=== PATIENT | male | born 1965 | race Caucasian/White ===

== ENCOUNTER → 2018-07-09 08:44 | Outpatient (CLI) | payer OTHER, SELFPAY ==
[2018-07-09 09:38] LABS: Add Manual Diff / Slide Review NO; Basophils Absolute Auto 0 /uL (0-100); Basophils Percent Auto 0.4 % (0-2); Eosinophils Absolute Auto 100 /uL (0-450); Eosinophils Percent Auto 1.1 % (2-4); Hematocrit 45.6 % (41-53); Hemoglobin 15.7 g/dL (13.5-17.5); Lymphocytes Absolute Auto 1500 /uL (1100-4500); Lymphocytes Percent Auto 15.3 % (25-40); Mean Corpuscular HGB Conc 34.5 % (30-36); Mean Corpuscular Volume 92.8 fL (80-100); Monocytes Absolute Auto 700 /uL (0-900); Neutrophils Absolute Auto 7400 /uL (1500-7000); Neutrophils Percent Auto 76.2 % (50-75); Platelet Count 220 X10^3/uL (150-400); Red Blood Cell Count 4.92 X10^6/uL (4.5-5.9); Red Cell Distribution Width 14.3 % (11.6-14.8); White Blood Cell Count 9.7 X10^3/uL (4.5-11.0)
[2018-07-09 09:54] LABS: Alanine Aminotransferase 19 IU/L (21-72); Albumin 4.2 g/dL (3.5-5.0); Albumin Globulin Ratio 1.4 (1.0-2.8); Alkaline Phosphatase 88 U/L (38-126); Aspartate Aminotransferase 22 IU/L (17-59); BUN Creatinine Ratio 8.8 (6-22); Bilirubin Total 0.7 mg/dL (0.2-1.3); Blood Urea Nitrogen 7 mg/dL (9-20); Calcium 9.4 mg/dL (8.4-10.2); Carbon Dioxide 29 mmol/L (22-32); Chloride 101 mmol/L (98-107); Cholesterol 192 mg/dL (140-199); Estimated Glomerular Filt Rate > 60.0 mL/min (>60); Glucose 115 mg/dL (70-100); HDL Cholesterol 46 mg/dL (40-60); HEMOLYSIS < 15 (0-50); LDL Cholesterol Calculated 119 mg/dL (<100); Potassium 4.7 mmol/L (3.4-5.1); Sodium 138 mmol/L (137-145); Total Protein 7.2 g/dL (6.3-8.2); Triglycerides 134 mg/dL (35-150)
[2018-07-09 10:23] LABS: Prostate Specific Antigen 0.171 ng/mL (0.10-4.00); TSH w/ Reflex to FT4 1.67 uIU/mL (0.47-4.68)
== END ==
PROVIDERS: PCP Nurse Practitioner; Visit Provider Nurse Practitioner
DX: Z00.00 Encounter for general adult medical examination without abnormal findings (principal); I10 Essential (primary) hypertension
CPT/HCPCS: 36415; 80053; 80061; 84153; 84443; 85025

== ENCOUNTER 2019-02-03 13:32 | Day surgery (SDC) | payer OTHER, SELFPAY ==
--- NOTE | 2019-02-03 | PATH_ITS ---
[facility] Accession Number: [id number] . 01 Material submitted: . PART A: colon - COLON POLYP AT 90CM PART B: colon - COLON POLYP AT 35CM PART C: rectum - RECTAL POLYP X2 AT 15CM . 02 Diagnosis: A. Colon At 90 CM, Polyp: Tubular adenoma. . B. Colon At 35 CM, Polyp: Tubular adenoma. . C. Rectum At 15 CM, Polyps: Fragments of tubular adenoma and fragment of hyperplastic polyp (2 polyps removed). [facility] 02/05/2019 1026 Local . 02 Electronically signed: . Vince Erickson MD, PhD, Pathologist NPI- [id number] . 01 Gross description: . Part A: COLON POLYP AT 90CM: Received in formalin is 1 fragment(s) of terry, soft tissue measuring 0.3 x 0.3 x 0.4 cm which is inked, bisected and submitted entirely in 1 cassette(s) 1. Part B: COLON POLYP AT 35CM: Received in formalin is 1 fragment(s) of terry, soft tissue measuring 0.6 x 0.4 x 0.4 cm which is inked, bisected and submitted entirely in 1 cassette(s) Part C: RECTAL POLYP X2 AT 15CM: Received in formalin are 3 fragment(s) of terry, soft tissue measuring 0.3 x 0.2 x 0.2 cm to 0.3 x 0.2 x 0.2 cm submitted entirely in 1 cassette(s) /QBJ 02/04/2019 2020 Local . 02 Pathologist provided ICD-10: D12.6, D12.8, K62.1 . 02 CPT . 734308, 696092, 655229 Performed at: 01 [place] [address] [id number] MD Bryant Pfeiffer MD Phone: [phone] Performed at: 02 [facility] [address] [place] [id number] MD Sharyn Chung MD Phone: [phone]
[2019-02-03] MEDS: SODIUM CHLORIDE 0.9% 1,000 ML 200 ML IV (13:44)
[2019-02-03 13:56] VITALS: BP 172/101; PULSE 76; RESP 16; TEMP 36.4; O2SAT 97; BMI 24.1
--- NOTE | 2019-02-03 14:31 | PM.HP.1 ---
History of Present Illness History of Present Illness Date Patient Seen: 02/03/19 Time Patient Seen: 14:31 Chief complaint: [address] SCREENING COLONOSCOPY Narrative: This is a 53-year-old man with a history of uncontrolled hypertension, smoking, prediabetes who has never had a screening colonoscopy. He denies any personal history of bleeding, or melena of the stool. ROS: Thirteen system review is negative other than as mentioned below and in HPI. PE: GENERAL: Well groomed and cooperative. Appears stated age. Answers questions promptly and appropriately. Vital signs noted. HENT: Normocephalic, atraumatic. Hearing intact. Oral mucosa is pink and moist. EYES: Conjunctiva pink, sclera white, no periorbital swelling. CARDIOVASCULAR: Regular rate. No pedal edema. RESPIRATORY: Non to get neck, breathing comfortably on room air. GASTROINTESTINAL: Abdomen soft and non-distended GENITALURINARY: No flank tenderness. MUSCULOSKELETAL: Equal tone and mass bilaterally. SKIN: Warm, dry, soft, appropriate color for ethnicity. No other lesions, rashes, or wounds. NEURO: Alert and Oriented X 3. No gross sensory deficits, or cognitive issues. PSYCH: Appropriate affect and mood. Patient History Medical History Chicken pox (Resolved ~1974) Hypertension (Acute) Pre-diabetes (Acute) Psoriasis (Chronic) Wears dentures (Acute) Surgical History History of tonsillectomy (Resolved) Family & Social History Family History Mother Diabetes mellitus Dementia Social History: household members spouse Tobacco & Substance use: Smoking Status Current every day smoker Meds Home Medications and Allergies Home Medications Medication Instructions Recorded Confirmed Type clobetasol 0.05 % topical cream 1 applictn TOP BID PRN #30 gram 07/09/18 02/03/19 Rx varicella-zoster [id number] (PF) 50 0.5 ml IM ONCE #1 each 07/09/18 07/09/18 Rx mcg/0.5 mL IM susp, kit Allergies Allergy/AdvReac Type Severity Reaction Status Date / Time No Known Drug Allergies Allergy Verified 02/03/19 13:45 Exam Vital Signs (past 8 hours): - 02/03/19 13:56 Temperature 97.6 F Pulse Rate 76 Respiratory Rate 16 Blood Pressure 172/101 H Pulse Oximetry 97 Oxygen Delivery Method Room Air Assessment & Plan Assessment and plan (1) At average risk for colon cancer: Current visit: Yes Status: Acute Assessment & Plan narrative: This is a 53-year-old man with history of uncontrolled hypertension. His blood pressure is high prior to the procedure. I've explained to the patient that we will attempt the procedure, but if the blood pressure is concerning or if we need to stop the procedure we will not be able to complete his procedure today. Patient is in agreement with this plan. Otherwise risks and benefits of the procedure were discussed including risk of bleeding, perforation, need for additional procedures. The patient desires to proceed. Time Spent With Patient Time with patient: 15-24 minutes Quality VTE Deep Vein Thrombosis/Pulmonary Embolism Present on Admission: No
[2019-02-03] MEDS: MIDAZOLAM 5 MG/5 ML VIAL IV (15:00)
[2019-02-03] MEDS: fentaNYL 250 MCG/5 ML INJ IV (15:00)
--- NOTE | 2019-02-03 15:25 | PM.OP.ENDO ---
Operative Date/Time/Diagnoses Date of procedure: 02/03/19 Time of procedure: 15:25 Pre-op diagnosis: Family history of colon cancer Post-op diagnosis: other (Polyps) Procedure & Clinicians Study performed: Colonoscopy, polypectomy x4 with hot snare Same procedure as scheduled: Yes Indications: This is a [age] year old man with a family history of colon cancer in his father Surgeon: Melissa Hopper Procedure Notes SCOAP/Timeout: Performed Procedure in detail: The patient was brought to the room and placed in left lateral decubitus position with all bony prominences padded. A time-out was performed and then the patient was given procedural sedation starting with 4 mg of Versed and 100 mcg of fentanyl. Vitals were monitored throughout the procedure and remained stable. Once adequately sedated the procedure was begun. A rectal exam was performed revealing no abnormalities. The colonoscope was then introduced to the rectum and advanced to the cecum in the usual fashion. The sigmoid colon was very tortuous and required prolonged maneuvering to get the scope into the descending colon. The cecum was identified by the appendiceal orifice, the mucosal try fold, and the ileocecal valve. The scope was then retracted while rotating side to side and examining each mucosal fold. For large polyps were found, greater than 1 cm each. They were removed with hot snare. One was at 90 cm, was at 35 cm from was at 15 cm and another was at 15 cm. At the conclusion procedure retroflexion was performed and small grade 1-2 internal hemorrhoids without stigmata of bleeding were seen. The scope was then withdrawn from the rectum the procedure was concluded. The patient tolerated the procedure well was transferred to the PACU in stable condition. Scope withdrawal time: 27 Sedation minutes: 49 Findings: polyp Specimen(s): other (4 polyps greater than 1 cm each) Complications: none Impression: four advanced polyps found Post-procedure Recommendations: Colonscopy in 1 year (Depending on pathology results) Follow up: as needed Disposition: PACU
[2019-02-03 15:33] VITALS: BP 146/95; PULSE 76; RESP 20; TEMP 37.1; O2SAT 98
[2019-02-03 15:38] VITALS: BP 148/97; PULSE 81; RESP 14; O2SAT 99
[2019-02-03 15:43] VITALS: BP 142/92; PULSE 75; RESP 12; O2SAT 98
[2019-02-03 15:48] VITALS: BP 142/97; PULSE 77; RESP 13; TEMP 36.2; O2SAT 98
[2019-02-03 16:04] VITALS: BP 133/78; PULSE 80; RESP 16; TEMP 36.5; O2SAT 98
== END 2019-02-03 16:08 | disposition home or self-care (01) ==
PROVIDERS: PCP Nurse Practitioner; Visit Provider Surgery
PROC: 0DJD8ZZ Inspection of Lower Intestinal Tract, Via Natural or Artificial Opening Endoscopic (ICD-10-PCS; CPT 45378; principal; 2019-02-03 14:30)
DX: Z12.11 Encounter for screening for malignant neoplasm of colon (principal); I10 Essential (primary) hypertension; F17.210 Nicotine dependence, cigarettes, uncomplicated; K64.0 First degree hemorrhoids; D12.6 Benign neoplasm of colon, unspecified; D12.8 Benign neoplasm of rectum
CPT/HCPCS: 45385; 99152; 99153; J2250; J3010

== ENCOUNTER → 2020-03-29 07:40 | Outpatient (CLI) | payer OTHER, SELFPAY ==
[2020-03-29 09:01] LABS: Add Manual Diff / Slide Review NO; Basophils Absolute Auto 0 /uL (0-100); Basophils Percent Auto 0.5 % (0-2); Eosinophils Absolute Auto 100 /uL (0-450); Eosinophils Percent Auto 1.2 % (2-4); Hematocrit 42.4 % (41-53); Hemoglobin 14.6 g/dL (13.5-17.5); Lymphocytes Absolute Auto 1400 /uL (1100-4500); Lymphocytes Percent Auto 19.2 % (25-40); Mean Corpuscular HGB Conc 34.5 % (30-36); Mean Corpuscular Hemoglobin 32.1 PG (26-34); Mean Corpuscular Volume 93.2 fL (80-100); Monocytes Absolute Auto 400 /uL (0-900); Monocytes Percent Auto 5.9 % (3-14); Neutrophils Absolute Auto 5400 /uL (1500-7000); Neutrophils Percent Auto 73.2 % (50-75); Platelet Count 226 X10^3/uL (150-400); Red Blood Cell Count 4.55 X10^6/uL (4.5-5.9); Red Cell Distribution Width 13.2 % (11.6-14.8); White Blood Cell Count 7.4 X10^3/uL (4.5-11.0)
[2020-03-29 09:25] LABS: BUN Creatinine Ratio 8.6 (6-22); Blood Urea Nitrogen 8 mg/dL (9-20); Calcium 8.9 mg/dL (8.4-10.2); Carbon Dioxide 27 mmol/L (22-32); Chloride 103 mmol/L (98-107); Cholesterol 187 mg/dL (140-199); Estimated Glomerular Filt Rate > 60.0 mL/min (>60); Glucose 106 mg/dL (70-100); HDL Cholesterol 48 mg/dL (40-60); HEMOLYSIS < 15 (0-50); LDL Cholesterol Calculated 82 mg/dL (<100); Potassium 3.7 mmol/L (3.4-5.1); Sodium 136 mmol/L (137-145); Triglycerides 283 mg/dL (35-150)
[2020-03-29 09:36] LABS: LDL Cholesterol Direct 114 mg/dL (<100)
[2020-03-29 11:04] LABS: Hepatitis B Surface Antigen NEGATIVE s/c (NEGATIVE)
[2020-03-30 00:07] LABS: Hepatitis B Core Antibody Negative (Negative)
[2020-03-30 01:27] LABS: Hepatitis B Surf AB Quant <3.1 mIU/mL (Immunity>9.9)
[2020-03-31 15:08] LABS: QuantiFERON Mitogen Value 7.86 IU/mL (.); QuantiFERON Nil Value 0.11 IU/mL (.); QuantiFERON TB Gold Plus Negative (Negative); QuantiFERON TB1 Ag Value 0.19 IU/mL (.)
--- NOTE | 2022-04-17 | PATH_ITS ---
Note [facility] Accession Number: [id number] TESTS RESULT FLAG UNITS REF RANGE LAB Clinician Provided Cytology Information No. of containers..02 Previously Prepared Cytology Slide 35 Unknown Storage/container code(s) Source: LEFT THYROID NODULE DIAGNOSIS: LEFT THYROID NODULE INCONCLUSIVE. BETHESDA CATEGORY III. ATYPIA OF UNDETERMINED SIGNIFICANCE. MOLECULAR STUDIES PENDING; RESULTS WILL BE REPORTED SEPARATELY. Pathologist ICD10: R89.6, E07.9 Signed out by: Jumana Trent MD, Pathologist NPI- [id number] Performed by: Fredy Mccain, [facility] Technician ([facility]) Gross description: 30 CC, RED, HAZY RECIEVED IN CYTOLYT WHITE CAP CONTAINER RECEIVED 6 ALOCHOL FIXED SLIDES IN 2 GREEN CAP COFFINS RECIEVED 6 FIXED SLIDES IN 2 SLIDE HOLDERS RECEIVED 1 RNA VIAL /RZA 04/18/2022 110 Local FLAG LEGEND: L-Low Normal,H-High Normal,LL-Alert Low,HH-Alert High <-Panic Low,>-Panic High,A-Abnormal,AA-Critical Abnormal Performed at: 01 =Z [facility] [address], [place] [address] Bryant Pfeiffer MD, Performed at: 01 [facility] [address], [place], [place] [id number] MD Bryant Pfeiffer MD Phone: [phone]
== END ==
LOC: LAB 07:43
PROVIDERS: PCP Nurse Practitioner; Referring Provider Physician Assistant; Visit Provider Physician Assistant
DX: L40.0 Psoriasis vulgaris (principal)
CPT/HCPCS: 36415; 80048; 80061; 83721; 85025; 86480; 86704; 86706; 87340

== ENCOUNTER → 2020-05-06 16:51 | Outpatient (CLI) | payer OTHER, SELFPAY ==
[2020-05-06] MEDS: COVID-19 VACC, Ad26(JANSSEN)/PF 0.5 ML IM (17:08)
== END ==
PROVIDERS: PCP Nurse Practitioner; Visit Provider Internal Medicine
DX: Z23 Encounter for immunization (principal)
CPT/HCPCS: 0031A; 91303

== ENCOUNTER → 2020-05-17 07:57 | Outpatient (CLI) | payer OTHER, SELFPAY ==
[2020-05-17 10:13] LABS: Prostate Specific Antigen Scrn 0.317 ng/mL (0.1-4.0)
== END ==
PROVIDERS: PCP Nurse Practitioner; Referring Provider Nurse Practitioner; Visit Provider Nurse Practitioner
DX: Z12.5 Encounter for screening for malignant neoplasm of prostate (principal)
CPT/HCPCS: 36415; G0103

== ENCOUNTER → 2023-01-09 15:27 | Outpatient (CLI) | payer OTHER, SELFPAY ==
[2023-01-09 16:50] LABS: Add Manual Diff / Slide Review NO; Basophils Absolute Auto 100 /uL (0-100); Basophils Percent Auto 0.7 % (0-2); Eosinophils Absolute Auto 200 /uL (0-450); Eosinophils Percent Auto 2.1 % (2-4); Hematocrit 43.6 % (41-53); Hemoglobin 14.6 g/dL (13.5-17.5); Lymphocytes Absolute Auto 2900 /uL (1100-4500); Lymphocytes Percent Auto 30.5 % (25-40); Mean Corpuscular HGB Conc 33.5 % (30-36); Mean Corpuscular Hemoglobin 29.5 PG (26-34); Mean Corpuscular Volume 87.9 fL (80-100); Monocytes Absolute Auto 600 /uL (0-900); Monocytes Percent Auto 6.8 % (3-14); Neutrophils Absolute Auto 5700 /uL (1500-7000); Neutrophils Percent Auto 59.9 % (50-75); Platelet Count 252 X10^3/uL (150-400); Red Blood Cell Count 4.96 X10^6/uL (4.5-5.9); Red Cell Distribution Width 13.9 % (11.6-14.8); White Blood Cell Count 9.5 X10^3/uL (4.5-11.0)
[2023-01-09 17:03] LABS: Alanine Aminotransferase 19 IU/L (<50); Albumin 4.3 g/dL (3.5-5.0); Albumin Globulin Ratio 1.3 (1.0-2.8); Alkaline Phosphatase 71 U/L (38-126); Aspartate Aminotransferase 22 IU/L (17-59); BUN Creatinine Ratio 10.6 (6-22); Bilirubin Total 0.4 mg/dL (0.2-1.3); Blood Urea Nitrogen 9 mg/dL (9-20); Calcium 9.3 mg/dL (8.4-10.2); Carbon Dioxide 26 mmol/L (22-32); Chloride 103 mmol/L (98-107); Cholesterol 199 mg/dL (140-199); Estimated Glomerular Filt Rate > 60 mL/min (>60); Globulin 3.2 g/dL (1.7-4.1); Glucose 82 mg/dL (70-100); HDL Cholesterol 42 mg/dL (40-60); HEMOLYSIS 15 (0-50); LDL Cholesterol Calculated 114 mg/dL (<100); Potassium 4.1 mmol/L (3.4-5.1); Sodium 137 mmol/L (137-145); Total Protein 7.5 g/dL (6.3-8.2); Triglycerides 213 mg/dL (35-150)
[2023-01-09 17:17] LABS: Free T3, Triiodothyronine Free 4.75 pg/mL (2.77-5.27); Free T4, Direct Thyroxine 1.16 ng/dL (0.78-2.19)
[2023-01-09 17:31] LABS: Thyroid Stimulating Hormone 1.33 uIU/mL (0.47-4.68)
[2023-01-10 18:39] LABS: HIV 1 & 2 Ab/Ag 4th Gen Combo NEGATIVE (NEGATIVE); Hep C Virus Ab w/Reflex Quant NEGATIVE s/c (NEGATIVE)
== END ==
PROVIDERS: PCP Nurse Practitioner; Referring Provider Nurse Practitioner; Visit Provider Nurse Practitioner
DX: Z00.00 Encounter for general adult medical examination without abnormal findings (principal); Z11.59 Encounter for screening for other viral diseases; Z11.4 Encounter for screening for human immunodeficiency virus [HIV]
CPT/HCPCS: 36415; 80053; 80061; 84439; 84443; 84481; 85025; 86803; 87389

== ENCOUNTER 2023-04-18 07:09 | Day surgery (SDC) | payer OTHER, SELFPAY ==
--- NOTE | 2023-04-18 | PATH_ITS ---
[facility] Accession Number: [id number] No. of containers..02 Tissue . 01 Material submitted: . PART A: colon - ASCENDING POLYP PART B: colon - TRANSVERSE POLYP . 01 Diagnosis: A. ASCENDING COLON POLYP, BIOPSY: Tubular adenoma. . B. TRANSVERSE COLON POLYP, BIOPSY: Tubular adenoma. [facility] 04/22/2023 1102 Local . 01 Electronically signed: . Karuna Guzman MD, Pathologist NPI- [id number] . 01 Gross description: . Part A: ASCENDING POLYP: Received in formalin is multiple fragment(s) of terry, soft tissue measuring 1.2 x 0.5 x 0.3 cm in aggregate submitted entirely in 1 cassette(s) Part B: TRANSVERSE POLYP: Received in formalin is 1 fragment(s) of terry, soft tissue measuring 0.9 x 0.5 x 0.3 cm submitted entirely in 1 cassette(s) /AAY 04/19/2023 0440 Local . 01 Pathologist provided ICD-10: D12.2, D12.3 . 01 CPT . 117525, 503921 Specimen Comment: A courtesy copy of this report has been sent to [phone] Performed at: 01 [facility] [address] [place] [address] [address] [facility], [place], [place] [id number] MD Bryant Pfeiffer MD Phone: [phone]
[2023-04-18 07:31] VITALS: BP 155/88; PULSE 60; RESP 16; TEMP 36.2; O2SAT 99
--- NOTE | 2023-04-18 08:02 | P.HP_ITS ---
History of Present Illness History of Present Illness Date Patient Seen: 04/18/23 Time Patient Seen: 08:02 Chief complaint: Screening Colonoscopy Narrative: Jason is a 58-year-old man who presents for a colonoscopy. He had a colonoscopy with Dr. Kolb in 2019 and for polyps were removed. They were described as being larger than 1 cm. At least 3 of them came back as tubular adenomas. One was a hyperplastic polyp. No family history of colon cancer. No rectal bleeding or melena. [facility] Medical History (Updated 04/18/23 @ 08:03 by Dexter Merchant MD) Erectile dysfunction At average risk for colon cancer Wears dentures Pre-diabetes Hypertension Psoriasis Chicken pox (~1974) Surgical History History of tonsillectomy Family History Mother Diabetes mellitus Dementia Social History household members: spouse Smoking Status: Former smoker alcohol intake: former Meds Home Medications and Allergies Home Medications Medication Instructions Recorded Confirmed Type calcipotriene 0.005 1 applic topical DAILY #120 grams 01/08/23 04/18/23 Rx %-betamethasone 0.064 % topical foam (Enstilar) Allergies Allergy/AdvReac Type Severity Reaction Status Date / Time No Known Drug Allergies Allergy Verified 01/08/23 09:16 Exam Vital Signs (past 8 hours): - 04/18/23 07:31 Temperature 97.1 F L Pulse Rate 60 Respiratory Rate 16 Blood Pressure 155/88 H Pulse Oximetry 99 Oxygen Delivery Method Room Air Oxygen Delivery Method Room Air Const General: healthy appearing Assessment & Plan Assessment and plan (1) Personal history of colonic polyps: Status: Acute Plan We reviewed the risks and benefits of colonoscopy for a personal history of colon polyps and he would like to proceed.
--- NOTE | 2023-04-18 08:30 | PM.OP.COLON ---
Operative Date/Time/Diagnoses Date of procedure: 04/18/23 Time of procedure: 08:30 Pre-op diagnosis: Personal history of colon polyps Post-op diagnosis: same Procedure & Clinicians Study performed: Colonoscopy Same procedure as scheduled: Yes Surgeon: Dexter Merchant Procedure Notes Procedure in detail: Surgeon: Dexter Merchant MD Anesthesia: Gage Cortez MD Procedure: The patient was brought to the endoscopy suite, placed in left lateral decubitus position. The patient was connected to monitoring devices. A time-out was performed. Sedation was administered. Once the patient was adequately sedated, a digital rectal exam was performed and was normal. The scope was then inserted and advanced to the cecum where the appendiceal orifice was identified and photographed. The scope was then slowly withdrawn over greater than 6 minutes. The mucosa was thoroughly inspected. There was a 1 cm polyp in the ascending colon removed with a cold snare. Hemostasis was confirmed. There was an 8 mm polyp in the transverse colon removed with a cold snare. There was scattered pandiverticulosis throughout the colon. The scope was retroflexed in the rectum. No other abnormalities were seen. The scope was straightened and removed. The patient was awakened and brought to recovery. Scope withdrawal time: 7 minutes Sedation time: 28 minutes EBL: 2 mL Findings: 1 cm polyp in the ascending colon an 8 mm polyp transverse, scattered pandiverticulosis Post-procedure Disposition: PACU
[2023-04-18 08:34] VITALS: BP 112/69; PULSE 64; RESP 10; TEMP 36.1; O2SAT 96
[2023-04-18 08:38] VITALS: BP 118/76; PULSE 61; RESP 16; O2SAT 97
[2023-04-18 08:45] VITALS: BP 121/88; PULSE 69; RESP 16; TEMP 36.1; O2SAT 97
[2023-04-18 08:50] VITALS: BP 132/80; PULSE 72; RESP 16; O2SAT 97
== END 2023-04-18 09:05 | disposition home or self-care (01) ==
PROVIDERS: PCP Nurse Practitioner; Referring Provider Surgery; Visit Provider Surgery
PROC: 0DJD8ZZ Inspection of Lower Intestinal Tract, Via Natural or Artificial Opening Endoscopic (ICD-10-PCS; CPT 45378; principal; 2023-04-18 08:15)
DX: Z12.11 Encounter for screening for malignant neoplasm of colon (principal); Z86.010 Personal history of colon polyps; K57.30 Diverticulosis of large intestine without perforation or abscess without bleeding; D12.2 Benign neoplasm of ascending colon; D12.3 Benign neoplasm of transverse colon
CPT/HCPCS: 45385; J2704

== ENCOUNTER 2023-05-27 10:18 | Emergency (ER) | payer OTHER, SELFPAY ==
[2023-05-27 10:27] VITALS: O2SAT 93
[2023-05-27 10:28] VITALS: BP 178/87; PULSE 68; O2SAT 99
[2023-05-27 10:30] VITALS: PULSE 67; O2SAT 100
[2023-05-27 10:33] VITALS: BP 178/87; PULSE 64; RESP 20; TEMP 36.3; O2SAT 99; BMI 25.0
--- NOTE | 2023-05-27 10:42 | DI.RAD.S_ITS ---
PROCEDURE: XR RIBS LT MIN 3V W CXR1V INDICATIONS: Struck chest on blunt object TECHNIQUE: 2 views of the ribs were acquired, along with a single view chest. COMPARISON: None. FINDINGS: Surgical changes and devices: None. Bones and chest wall: No fractures or dislocations. No suspicious bony lesions. Overlying soft tissues appear unremarkable. Lungs and pleura: No pleural effusions or pneumothorax. Lungs appear clear. Mediastinum: Mediastinal contours appear normal. Heart size is normal. IMPRESSION: No displaced rib fracture or pneumothorax. Dictated by: Waldo Dahl M.D. on 05/27/2023 at 11:14 Approved by: Waldo Dahl M.D. on 05/27/2023 at 11:14
--- NOTE | 2023-05-27 10:58 | ED.FALL ---
HPI - Fall General Chief Complaint: Trauma Stated Complaint: fall T-5/ having pain in Ribs and shoulder blades Time Seen by Provider: 05/27/23 10:39 Source: patient Mode of arrival: Ambulatory History of Present Illness HPI Narrative: Patient is a healthy 58-year-old male presents today with left-sided rib pain. Reports that 4 days ago he was at work getting off a boat that was out of the water he was going down the stairs kind of slip went to the left. He hit himself on a ring that was sticking out hit directly onto a radio that he had on his left side injuring the left rib right under his nipple. He was doing okay however last night woke up in pretty severe pain now is radiating around his back. He denies any shortness of breath or cough. He was just taking Tylenol for pain but now it has a little bit worse. Hurts every time he moves or breathes. Related Data Previous Rx's Medication Instructions Recorded calcipotriene 0.005 1 applic topical DAILY #120 grams 01/08/23 %-betamethasone 0.064 % topical foam (Enstilar) hydrocodone 5 mg-acetaminophen 325 1 tab PO Q6H PRN pain #10 tabs 05/27/23 mg tablet Allergies Allergy/AdvReac Type Severity Reaction Status Date / Time No Known Drug Allergies Allergy Verified 05/27/23 10:42 Patient History Medical History Erectile dysfunction At average risk for colon cancer Wears dentures Pre-diabetes Hypertension Psoriasis Chicken pox (~1975) Surgical History History of tonsillectomy Family History Mother Diabetes mellitus Dementia Social History household members: spouse Smoking Status: Former smoker alcohol intake: former Smoking Status: Former smoker Substance Use Type: does not use Exam Initial Vital Signs Initial Vital Signs: Vital Signs Pulse Oximetry 93 05/27/23 10:27 GENERAL: Alert pleasant well-appearing 58-year-old and in no acute distress. HEENT: Head atraumatic,EOMI, pupils reactive, face symmetric, moist mucous membranes CARDIOVASCULAR: Regular rate and rhythm without murmurs, rubs or gallops. RESPIRATORY: Breath sounds equal bilaterally, no wheezes rales or rhonchi. Tender left 4th or 5th rib but no obvious step-off no paradoxical movement no contusion or abrasion ABDOMEN: Soft, nontender. Normoactive bowel sounds all 4 quadrants. No guarding or rebound. EXTREMITIES: Normal range of motion, no clubbing or edema. Neurovascularly intact NEUROLOGICAL: Alert and oriented x4. SKIN: Warm, dry, no laceration, no petechiae, no rashes or lesions. Course Orders Ordered: ED Orders 05/27/23 10:42 XR ribs LT min 3V w CXR1V Stat Vital Signs Vital signs: Vital Signs - 8 hr 05/27/23 10:27 05/27/23 10:28 05/27/23 10:28 Temperature Pulse Rate 68 Respiratory Rate Blood Pressure 178/87 H Pulse Oximetry 93 99 Oxygen Delivery Method 05/27/23 10:30 05/27/23 10:33 05/27/23 11:58 Temperature 97.3 F L Pulse Rate 67 64 61 Respiratory Rate 20 20 Blood Pressure 178/87 H 149/78 H Pulse Oximetry 100 99 98 Oxygen Delivery Method Room Air Room Air MDM - Fall Imaging Data Chest x-ray: Radiologist's Impression: PROCEDURE: XR RIBS LT MIN 3V W CXR1V INDICATIONS: Struck chest on blunt object TECHNIQUE: 2 views of the ribs were acquired, along with a single view chest. COMPARISON: None. FINDINGS: Surgical changes and devices: None. Bones and chest wall: No fractures or dislocations. No suspicious bony lesions. Overlying soft tissues appear unremarkable. Lungs and pleura: No pleural effusions or pneumothorax. Lungs appear clear. Mediastinum: Mediastinal contours appear normal. Heart size is normal. IMPRESSION: No displaced rib fracture or pneumothorax. Dictated by: Waldo Dahl M.D. on 05/27/2023 at 11:14 MDM Narrative Medical decision making narrative: Patient is a healthy 58-year-old male who presents today with left-sided rib pain after injury. X-rays negative for fracture pneumothorax. Suspect rib contusion. Still having quite a bit of pain. Will give [place] and encouraged supportive care only. Discharge Plan Departure Patient Disposition: Home Clinical Impression: Contusion of rib Instructions: DI for Rib Contusion Activity Restrictions/Additional Instructions: *You have been diagnosed with rib contusion *What to do: At this time supportive care only try ice or heat. We will need to splint while moving. *Continue to take medications as directed Motrin 600 mg every 6 hours for imhc-vk-zsmtntdq pain [place] 1 tablet every 6 hours only if needed for severe pain Tylenol 650 mg every 4-6 hours for wnpk-lr-vsfdsehq pain *Follow up with your primary care provider in 2-3 days or call [phone] *Return to ER if you should have increasing pain shortness of breath or any new, worsening or concerning symptoms CONTROLLED SUBSTANCE DISCHARGE (Narcotoic/benzodiazepine/Flexeril/Phenergan) 1. You have been prescribed narcotic medications, it does have acetaminophen/Tylenol/paracetamol in it, DO NOT TAKE MORE THAN 4,00mg in 24 hours of Tylenol. TRAMADOL DOES NOT CONTAIN TYLENOL 2. Please understand that we cannot provide further refills of narcotics, benzodiazepines or controlled substances through the ED and her pain management will need to be through your provider. 3. While on these medications you cannot drive or operate heavy machinery. 4. You cannot sign legal documents or perform any duties such as this. 5. As long as you're taking opiate pain medications he should also be taking a stool softener such as Colace, Dulcolax, MiraLAX or prune juice, to help avoid constipation. Prescriptions: New hydrocodone-acetaminophen 5-325 mg tablet 1 tab PO Q6H PRN (Reason: pain) Qty: 10 0RF No Action Enstilar 0.005-0.064 % foam 1 applic topical DAILY Qty: 120 3RF Rx Instructions: Apply to hands, elbows, and knees bilaterally for psoriasis Referrals: Soledad Sanchez ARNP [Primary Care Provider] - Stand Alone Forms: Patient Portal/API, Work Release Note
[2023-05-27 11:58] VITALS: BP 149/78; PULSE 61; RESP 20; O2SAT 98
== END 2023-05-27 11:59 | disposition home or self-care (01) ==
PROVIDERS: Emergency Provider Emergency Medicine; PCP Nurse Practitioner
DX: S20.212A Contusion of left front wall of thorax, initial encounter (principal); W01.0XXA Fall on same level from slipping, tripping and stumbling without subsequent striking against object, initial encounter
CPT/HCPCS: 71101; 99281; 99283

== ENCOUNTER → 2024-04-30 11:10 | Outpatient (CLI) | payer OTHER, SELFPAY ==
[2024-04-30 12:10] LABS: Creatinine Urine Random 142.22 mg/dL
[2024-04-30 12:11] LABS: BUN Creatinine Ratio 11.3 (6-22); Blood Urea Nitrogen 11 mg/dL (9-20); Calcium 9.4 mg/dL (8.4-10.2); Carbon Dioxide 26 mmol/L (22-32); Chloride 99 mmol/L (98-107); Cholesterol 227 mg/dL (140-199); Estimated Glomerular Filt Rate > 60 mL/min (>60); Glucose 94 mg/dL (70-100); HDL Cholesterol 51 mg/dL (40-60); LDL Cholesterol Calculated 151 mg/dL (<100); Potassium 4.4 mmol/L (3.4-5.1); Sodium 134 mmol/L (137-145); Triglycerides 124 mg/dL (35-150)
[2024-04-30 12:15] LABS: Microalbumin Urine Random 1.3 mg/dL (0-1.6)
[2024-04-30 12:43] LABS: HEMOLYSIS < 15 (0-50); Prostate Specific Antigen Scrn 0.171 ng/mL (0.1-4.0)
== END ==
PROVIDERS: PCP Internal Medicine; Referring Provider Internal Medicine; Visit Provider Internal Medicine
DX: I10 Essential (primary) hypertension (principal); R73.01 Impaired fasting glucose; E78.2 Mixed hyperlipidemia; Z12.5 Encounter for screening for malignant neoplasm of prostate
CPT/HCPCS: 36415; 80048; 80061; 82043; 82570; 83036; G0103

== ENCOUNTER → 2024-05-09 11:30 | Outpatient (CLI) | payer OTHER, SELFPAY ==
--- NOTE | 2024-05-09 11:31 | DI.CT.S_ITS ---
PROCEDURE: CT LUNG LOW DOSE SCREENING INDICATIONS: history of tobacco use TECHNIQUE: Noncontrast 2.0-2.5 mm thick sections acquired from the pulmonary apices to the posterior costophrenic angles. 7 mm thick axial MIP, and 5 mm coronal and sagittal reformats were then acquired. For radiation dose reduction, the following was used: automated exposure control, adjustment of mA and/or kV according to patient size. COMPARISON: None. FINDINGS: Image quality: Diagnostic. Lower Neck: No enlarged lymph nodes. Thyroid: No thyroid nodules which require sonographic follow up, per consensus guidelines. Axillae: No enlarged lymph nodes. Chest Wall: Unremarkable. Bones: Unremarkable. Lungs and Pleura: No pneumothorax or pleural effusions. Small right apical nodules on series 3 image 45 as well as 58 with the largest measuring 4 mm. No priors. Heart: Heart size is normal. Trays pericardial effusion. Thoracic Vessels: The aorta and pulmonary arteries demonstrate normal size. Mediastinum and [place]: No enlarged lymph nodes. Esophagus: No wall thickening. No hiatal hernia. Upper Abdomen: Visualized upper abdomen solid organs and bowel loops appear normal. IMPRESSION: Likely benign subcentimeter right apical nodules the largest measuring 4 mm. LUNG-RADS 2; continued annual screening, if eligible. Clinically Significant Non-pulmonary Findings: None. Dictated by: Vanessa Sanabria M.D. on 05/09/2024 at 17:15 Approved by: Vanessa Sanabria M.D. on 05/09/2024 at 17:17
== END ==
PROVIDERS: PCP Internal Medicine; Referring Provider Internal Medicine; Visit Provider Internal Medicine
DX: Z12.2 Encounter for screening for malignant neoplasm of respiratory organs (principal); Z87.891 Personal history of nicotine dependence; R91.8 Other nonspecific abnormal finding of lung field
CPT/HCPCS: 71271